=== PATIENT | female | born 1935 | race Caucasian/White ===

== ENCOUNTER 2016-07-10 22:34 | Emergency (ER) | payer OTHER ==
[~2016-07-10] VITALS: Ht 154.9 cm; Wt 81.6 kg
--- NOTE | 2016-07-10 22:41 | NUR ---
Patient to ER bed 5 to gown for evaluation. Side rails up. Report given to Vi MELTON.
--- NOTE | 2016-07-10 22:58 | NUR ---
Patient to ER C/O severe bilateral legs swelling. 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 Patient states that since then she has severe bilateral swelling but in the last days her right lower leg has reddness and pain is severe 7/10. Patient would like to be evaluated for possible infection. AAOx4, unlabored breathing, no signs of acute distress.
--- NOTE | 2016-07-10 23:17 | NUR ---
ER MD Lennon at bedside for evaluation
[2016-07-10 23:18] VITALS: BP 188/98; PULSE 66; RESP 20; TEMP 97.7; O2SAT 97
--- NOTE | 2016-07-10 23:20 | NUR ---
Patient to ER bed 05 to gown for evaluation. Side rails up. Report given to Vi
[2016-07-10 23:48] LABS: BASOPHILS % (AUTO) 0.3 % (0.0-2.0); EOSINOPHILS # (AUTO) 0.1 K/uL (0.0-0.4); EOSINOPHILS % (AUTO) 1.6 % (0.0-4.0); HEMATOCRIT 34.9 % (36-48); HEMOGLOBIN 12.1 g/dL (12.0-16.0); LYMPHOCYTES # (AUTO) 1.5 K/uL (1.0-5.5); LYMPHOCYTES % (AUTO) 16.5 % (20.5-51.5); MEAN CORPUSCULAR HEMOGLOBIN 32 pg (27-31); MEAN CORPUSCULAR HGB CONC 35 % (32-36); MEAN CORPUSCULAR VOLUME 91 fL (79.0-98.0); MONOCYTES # (AUTO) 0.9 K/uL (0.0-1.0); MONOCYTES % (AUTO) 9.4 % (1.7-9.3); NEUTROPHILS # (AUTO) 6.7 K/uL (1.8-7.7); NEUTROPHILS % (AUTO) 72.2 % (40.0-70.0); PLATELET COUNT (AUTO) 191 K/uL (130-430); RED BLOOD CELL COUNT(AUTO) 3.82 MIL/uL (4.2-6.2); RED CELL DISTRIBUTION WIDTH 12.7 % (9.0-15.0); WHITE BLOOD COUNT (AUTO) 9.2 K/uL (4.8-10.8)
[2016-07-10 23:54] LABS: ANION GAP 7 (5-15); CALCIUM 8.9 mg/dL (8.4-11.0); CHLORIDE 106 mmol/L (98-107); GLUCOSE 142 mg/dL (70-99); POTASSIUM 4.7 mmol/L (3.5-5.1); SODIUM SERUM 141 mmol/L (136-145); UREA NITROGEN, BLOOD 21 mg/dL (8-21)
[2016-07-11 00:01] LABS: ALANINE AMINOTRANSFERASE 17 U/L (12-78); ALBUMIN 2.9 g/dL (3.4-4.8); ASPARTATE AMINOTRANSFERASE 22 U/L (10-37); TOTAL BILIRUBIN 0.1 mg/dL (0.0-1.0); TOTAL PROTEIN, SERUM 7.1 g/dL (6.4-8.3)
--- NOTE | 2016-07-11 00:27 | NUR ---
Per ER MD OK to discharge with BP 157/74. ER MD Lennon discussed with patient and daughter home care, HTN treatments and the need to return to ER if headache, blurry vision, N/V, unsteady gait, dizziness, etc.
[2016-07-11 00:28] LABS: ERYTHROCYTE SEDIMENTATION RATE 62 MM/HR (0-20)
[2016-07-11 00:39] VITALS: BP 157/74; PULSE 66; RESP 17; TEMP 98; O2SAT 98
--- NOTE | 2016-07-11 00:39 | NUR ---
Patient given written and verbal discharge instructions and verbalizes understanding. ER MD Lennon discussed with patient the results and treatment provided. Given copies of tests performed in ER. Patient in stable condition. ID arm band removed. Rx of cephalexin given. Patient educated on pain management and to follow up with PMD. Pain Scale 0/10. Opportunity for questions provided and answered.
== END 2016-07-11 00:39 | disposition home or self-care (01) ==
LOC: SED 22:34
DX: I89.0 Lymphedema, not elsewhere classified (principal); C51.9 Malignant neoplasm of vulva, unspecified
CPT/HCPCS: 36415; 80053; 85025; 85651-TC; 99284